=== PATIENT | female | born 1990 | race African-American/Black ===

== ENCOUNTER 2016-10-24 21:03 | Emergency (ER) | payer BC ==
[~2016-10-24] VITALS: Ht 162.6 cm; Wt 61.4 kg
[2016-10-24] MEDS ORDERED: ONDANSETRON 4 MG INJ IV STA (21:05)
[2016-10-24] MEDS ORDERED: LORAZEPAM 2 MG INJ IV STA (21:05)
[2016-10-24] MEDS ORDERED: MAGNESIUM SULFATE 2 GM, MULTIVITAMINS 10 ML, THIAMINE 100 MG, FOLIC ACID 1 MG in SOD CH... IV STA (21:05)
[2016-10-24 21:09] VITALS: Ht 162.6 cm; Wt 61.4 kg
[2016-10-24] MEDS ORDERED: DIAZ2TAB3 PO (21:44)
[2016-10-24] MEDS ORDERED: LITH300T5 PO (21:45)
[2016-10-24] MEDS ORDERED: DULO30CA47 PO (21:45)
[2016-10-24] MEDS ORDERED: DIVA500T7 PO (21:45)
[2016-10-24] MEDS ORDERED: ETHI1TAB25 PO (21:46)
[2016-10-24 21:47] LABS: BASOPHILS % 0.3 % (0.0-2.0); EOSINOPHILS # 0.1 10^3/ul (0.0-0.5); EOSINOPHILS % 1.6 % (0.0-7.0); HEMATOCRIT 40.8 % (37.0-47.0); HEMOGLOBIN 14.3 g/dl (12.0-16.0); LYMPHOCYTES # 2.1 10^3/ul (0.8-2.9); LYMPHOCYTES % 25.3 % (15.0-51.0); MEAN CORPUSCULAR HEMOGLOBIN 29.8 pg (29.0-33.0); MEAN CORPUSCULAR HGB CONC 34.9 g/dl (32.0-37.0); MEAN CORPUSCULAR VOLUME 85.2 fl (82.0-101.0); MEAN PLATELET VOLUME 7.6 fl (7.4-10.4); MONOCYTE # 0.9 10^3/ul (0.3-0.9); MONOCYTES % 11.2 % (0.0-11.0); NEUTROPHILS % 61.6 % (39.0-77.0); PLATELET COUNT 260 10^3/UL (140-440); RED BLOOD COUNT 4.79 10^6/ul (4.20-5.40); RED CELL DISTRIBUTION WIDTH 12.8 % (11.5-14.5); UNCORRECTED WBC 8.2 10^3/ul (4.8-10.8); WHITE BLOOD COUNT 8.2 10^3/ul (4.8-10.8)
[2016-10-24] MEDS ORDERED: ONDA4TAB14 PO (21:53)
--- NOTE | 2016-10-24 21:53 | ERD ---
ER Documentation Chief Complaint Date/Time DATE: 10/24/16 TIME: 21:48 Chief Complaint ETOH intoxication, abd pain HPI This is a 26-year-old female with a recent diagnosis of bipolar. She is currently taking lithium and Depakote. She indicates she took her last dose of the lithium and Depakote over 24 hours prior to arrival. She did indicate that over the past several hours she has had a significant amount of alcohol that she was drinking socially with her . He states she suddenly became very nauseous and had several episodes of nonbloody nonbilious emesis. She did appear very anxious and states she was having palpitations. Contrary to the triage note she states she is not having abdominal pain but is just feeling nauseous. She denies any suicidal homicidal thoughts or ideations. No auditory tactile or visual hallucinations. ROS All systems reviewed and are negative except as per history of present illness. Medications Home Meds Reported Medications Ethinyl Estradiol-Drospirenone (Yulissa 28-Day) 3-0.02 Mg Tablet, 1 TAB PO DAILY, TAB 10/24/16 Duloxetine Hcl* (Duloxetine Hcl*) 30 Mg Capsule.dr, 30 MG PO DAILY, #30 CAP 10/24/16 Divalproex Sodium* (Depakote ER*) 500 Mg Tabsr, 500 MG PO BID, #30 TAB.SA 10/24/16 Tiburones Carbonate* (Tiburones Carbonate*) 300 Mg Tablet, 300 MG PO DAILY, TAB 10/24/16 Diazepam* (Diazepam*) 2 Mg Tablet, 2 MG PO TID, TAB 10/24/16 Allergies Allergies: Coded Allergies: shellfish derived (Verified Allergy, Unknown, 10/24/16) PMhx/Soc History of Surgery: No Anesthesia Reaction: No Hx Neurological Disorder: No Hx Respiratory Disorders: No Hx Cardiac Disorders: No Hx Psychiatric Problems: Yes (anxiety,mild bipolar) Hx Miscellaneous Medical Probl: Yes (GERD) Hx Alcohol Use: Yes (occasionally,sake last taken 10/24/16) Hx Substance Use: Yes (marijuana last used 10/20/2016) Hx Tobacco Use: No Smoking Status: Never smoker Physical Exam Vitals Vital Signs Date Time Temp Pulse Resp B/P Pulse Ox O2 Delivery O2 Flow Rate FiO2 10/24/16 21:09 97.0 86 19 123/55 100 Physical Exam Constitutional:Well-developed. Well-nourished. Patient was very tearful, anxious moving around in stretcher HEENT:Normocephalic. Atraumatic.Pupils were equal round reactive to light. Moist mucous membranes.No tonsillar exudates. Neck: No nuchal rigidity. No lymphadenopathy. No posterior cervical spine tenderness or step-offs. Respiratory: Not using accessory muscles of respiration.Lungs were clear to auscultation bilaterally. No rhonchi. No rales. No wheezing. Cardiovascular: Regular rate regular rhythm.No murmurs. No rubs were appreciated.S1, S2 normal. Distal pulses are palpable 2+ bilaterally. GI: Abdomen was soft. Nontender. Non Distended. No pulsatile abdominal masses or bruits. No rebound. No guarding. Bowel sounds were present and normal. Muscle skeletal: Full range of motion of both the upper and lower extremities bilaterally.Normal muscle tone.No assymetrical calf tenderness or swelling. Skin: No petechia, no purpura. No lesions on the palms or the soles of the feet. No maculopapular rash. NEURO: Patient was alert, awake, orientated x3. Patient had ataxic gait and smelled of alcohol. She was following all verbal commands. Had no facial droop. Results 24 hrs Current Medications Medications (Trade) Dose Ordered Sig/Jaime Route PRN Reason Start Time Stop Time Status Last Admin Dose Admin Magnesium Sulfate/ Multivitamins/ Thiamine HCl/ Folic Acid/Sodium Chloride (Magnesium Sulfate/Mvi Adult/ Vitamin B1/Folic Acid/NS) 1,015.2 ml @ 500 mls/ hr Q2H2M STAT IV 10/24/16 21:05 10/24/16 23:06 Lorazepam (Ativan) 1 mg ONCE STAT IV 10/24/16 21:05 10/24/16 21:08 DC Ondansetron HCl (Zofran Inj) 4 mg ONCE STAT IV 10/24/16 21:05 10/24/16 21:08 DC Procedures/MDM This patient presented to the emergency department with acute alcohol intoxication. Given that the patient has an underlying history of bipolar I did obtain a lithium level which was found to be normal. The patient been placed in a monitor and storage bin tender continuous pulse oximetry and IV access was established by nursing staff. The patient appeared to be having acute anxiety reaction and she was feeling very anxious and expressing palpitations and stated she could not breathe. However I repeated the respiratory examination at this time and the patient was hyperventilating and had equal and symmetrical breath sounds bilaterally. I placed 2 L of supplemental oxygen on the patient but she was not hypoxic. She stated this made her feel much better and she also had been given 1 mg of Ativan intravenously.. The patient has been has been at the bedside during her entire hospital visit. She did receive a banana bag of folic acid thiamine and a multivitamin. She has also given IV Zofran. The patient at this time felt comfortable being discharged home. She did not appear to have any suicidal homicidal thoughts or ideations and there is no drug overdose. Upon reevaluation she was able to ambulate with no ataxia and the patient was discharged home in fair condition. They were instructed to return to the emergency department at any time if there was any worsening of their condition. The patient stated they would follow up with their PCP in the next 24-48 hours to initiate a suitable medication regimen under the care of their PCP as well as to allow their PCP to monitor any drug reactions. The patient was discharged home with prescriptions after they gave informed consent to the new medication. They were also fully informed by myself on the adverse effects and adverse drug interactions in order to provide adequate safeguards to prevent possible adverse reactions to medications. Departure Diagnosis: Primary Impression: Alcoholic intoxication Complication of substance-induced condition: uncomplicated Qualified Code: F10.120 - Alcoholic intoxication, uncomplicated Additional Impression: Anxiety reaction Condition: Fair JUAN FRANCISCO GUTHRIE Oct 24, 2016 21:53
[2016-10-24 21:55] LABS: CONDITION 1
[2016-10-24 21:57] LABS: INR 0.95; PROTIME 12.7 Sec (12.2-14.2)
[2016-10-24 21:58] LABS: PARTIAL THROMBOPLASTIN TIME 20.7 Sec (25.0-35.0)
[2016-10-24 21:59] LABS: ALBUMIN 4.3 g/dl (3.3-4.9); CHLORIDE 107 mmol/L (97-110)
[2016-10-24 22:00] LABS: POTASSIUM 3.7 mmol/L (3.5-5.1); SODIUM 148 mmol/L (135-144)
[2016-10-24 22:02] LABS: ANION GAP 21 (8-16); ASPARTATE AMINO TRANSFERASE 42 IU/L (15-46); BILIRUBIN,INDIRECT 0.1 mg/dl (0-1.1); BILIRUBIN,TOTAL 0.1 mg/dl (0.2-1.3); CARBON DIOXIDE 24 mmol/L (21-31); CREATININE 0.81 mg/dl (0.44-1.00)
[2016-10-24 22:03] LABS: ALANINE AMINOTRANSFERASE 45 IU/L (13-69); ALBUMIN/GLOBULIN RATIO 1.02; ALKALINE PHOSPHATASE 62 IU/L (42-121); BLOOD UREA NITROGEN 18 mg/dl (7-20); CALCIUM 9.5 mg/dl (8.4-10.2); GLUCOSE 95 mg/dl (70-220); SALICYLATE < 1.0 mg/dl (5.0-30.0); TOTAL PROTEIN 8.5 g/dl (6.1-8.1)
[2016-10-24 22:04] LABS: ACETAMINOPHEN < 10.0 ug/ml (10.0-30.0)
[2016-10-24] MEDS ORDERED: SOD CHLORIDE 0.9% 1,000 ML IV STA (23:00)
[2016-10-25 01:35] VITALS: BP 99/53; PULSE 96; RESP 20
== END 2016-10-25 01:32 | disposition home or self-care (01) ==
LOC: E/R 21:03
DX: F10.120 Alcohol abuse with intoxication, uncomplicated (principal); F41.1 Generalized anxiety disorder; R11.2 Nausea with vomiting, unspecified; R40.2142 Coma scale, eyes open, spontaneous, at arrival to emergency department; R40.2242 Coma scale, best verbal response, confused conversation, at arrival to emergency department; R40.2362 Coma scale, best motor response, obeys commands, at arrival to emergency department; R06.02 Shortness of breath
CPT/HCPCS: 36415; 80053; 80178; 80306; 85025; 85610; 85730; 96374; 96375; 99284; J2060; J2405; J3411; J3475; J7030